=== PATIENT | male | born 1985 | race American Indian/Alaskan Native ===

== ENCOUNTER 2018-01-23 23:19 | Emergency (ER) | payer OTHER ==
[2018-01-23] MEDS ORDERED: PROVENTIL IH ONE (23:25)
--- NOTE | 2018-01-24 00:26 | XRay Report ---
FINAL REPORT EXAM: XR CHEST ROUTINE 2V HISTORY: sob TECHNIQUE: PA and lateral views of the chest were submitted. FINDINGS: Heart size and mediastinum appear normal. The lungs are clear. There is no evidence of congestion or effusion. The skeletal structures are well-maintained. IMPRESSION: Normal chest
[2018-01-24] MEDS ORDERED: PROVENTIL IH ONE (02:55)
[2018-01-24] MEDS ORDERED: ATROVENT IH ONE (02:55)
--- NOTE | 2018-01-24 03:06 | Emergency Department Report ---
HPI - General Chief Complaint: Adult Asthma Time Seen by Provider: 01/24/18 02:48 - HPI HPI: Mooney 25 The patient is a 32-year-old male presenting with a chief complaint of palpitations and shortness of breath. The patient states yesterday and today has had episodes where his heart races and he feels short of breath. Patient attributes it to panic attacks. Patient states he found himself using his inhaler but it has not helped. The patient states he's had a cough productive of thin clear sputum. The patient complains of soreness in his back from coughing. Patient does admit to pleurisy. Patient denies recent flights or long car trips. Location: [See above] Duration: Intermittent, yesterday and today Quality: Soreness Severity: Moderate Modifying factors: [see above] Context: [see above] Mode of transportation: Unknown ED Past Medical Hx - Past Medical History Hx Psychiatric Treatment: Yes (Panic Attacks) Hx Asthma: Yes - Surgical History Past Surgical History?: No - Family History Family history: no significant - Social History Smoking Status: Never Smoker Substance Use Type: None (denies illicit drug use) - Medications Home Medications: Home Medications Medication Instructions Recorded Confirmed Last Taken Type ALBUTEROL Inhaler [Proair] 2 puff IH QID PRN #1 inhalation 01/24/18 Unknown Rx Azithromycin [Zithromax Z-JORGE] 0 mg PO DAILY #6 tab 01/24/18 Unknown Rx Prednisone [predniSONE 10 mg 10 mg PO .TAPER #1 tab.ds.pk 01/24/18 Unknown Rx (6-Day Pack, 21 Tabs)] ED Review of Systems ROS: Stated complaint: MEENA; ASTHMA Other details as noted in HPI Constitutional: no symptoms reported Respiratory: cough, shortness of breath Cardiovascular: palpitations Musculoskeletal: back pain, myalgia Physical Exam - Physical Exam Vital Signs: Vital Signs 01/23/18 23:32 Temperature 99 F Pulse Rate 101 H Respiratory 26 H Rate Blood Pressure 138/74 O2 Sat by Pulse 94 Oximetry Physical Exam: GENERAL: The patient is well-developed well-nourished male lying on stretcher not appearing to be in acute distress. [] HEENT: Normocephalic. Atraumatic. Extraocular motions are intact. Patient has moist mucous membranes. NECK: Supple. Trachea midline CHEST/LUNGS: Occasional rhonchi. Occasional trace wheeze. There is no respiratory distress noted. HEART/CARDIOVASCULAR: Regular. There is no tachycardia. There is no gallop rub or murmur. ABDOMEN: Abdomen is soft, nontender. Patient has normal bowel sounds. There is no abdominal distention. SKIN: There is no rash. There is no diaphoresis. NEURO: The patient is awake, alert, and oriented. The patient is cooperative. The patient has normal speech MUSCULOSKELETAL: There is no evidence of acute injury. ED Course Vital Signs 01/23/18 23:32 Temperature 99 F Pulse Rate 101 H Respiratory 26 H Rate Blood Pressure 138/74 O2 Sat by Pulse 94 Oximetry ED Medical Decision Making - Lab Data Result diagrams: 01/24/18 03:11 01/24/18 03:11 Laboratory Tests 01/24/18 01/24/18 01/24/18 03:11 03:11 03:11 WBC 8.9 RBC 5.57 H Hgb 13.8 Hct 43.1 MCV 77 L MCH 25 L MCHC 32 RDW 15.0 Plt Count 224 Add Manual Diff Complete Total Counted 100 Seg Neutrophils % Water Treatment Operator Seg Neuts % (Manual) 89.0 H Band Neutrophils % 1.0 Lymphocytes % (Manual) 8.0 L Reactive Lymphs % (Man) 0 Monocytes % (Manual) 2.0 Eosinophils % (Manual) 0 Basophils % (Manual) 0 Metamyelocytes % 0 Myelocytes % 0 Promyelocytes % 0 Blast Cells % 0 Nucleated RBC % Not Reportable Seg Neutrophils # Man 7.9 H Band Neutrophils # 0.1 Lymphocytes # (Manual) 0.7 L Abs React Lymphs (Man) 0.0 Monocytes # (Manual) 0.2 Eosinophils # (Manual) 0.0 Basophils # (Manual) 0.0 Metamyelocytes # 0.0 Myelocytes # 0.0 Promyelocytes # 0.0 Blast Cells # 0.0 WBC Morphology Not Reportable Hypersegmented Neuts Not Reportable Hyposegmented Neuts Not Reportable Hypogranular Neuts Not Reportable Smudge Cells Not Reportable Toxic Granulation Not Reportable Toxic Vacuolation Not Reportable Dohle Bodies Not Reportable Pelger-Huet Anomaly Not Reportable Doug Rods Not Reportable Platelet Estimate Appears normal Clumped Platelets Not Reportable Plt Clumps, EDTA Not Reportable Large Platelets Not Reportable Giant Platelets Not Reportable Platelet Satelliting Not Reportable Plt Morphology Comment Not Reportable RBC Morphology Not Reportable Dimorphic RBCs Not Reportable Polychromasia Not Reportable Hypochromasia Not Reportable Poikilocytosis Not Reportable Anisocytosis Few Microcytosis Not Reportable Macrocytosis Not Reportable Spherocytes Not Reportable Pappenheimer Bodies Not Reportable Sickle Cells Not Reportable Target Cells Not Reportable Tear Drop Cells Not Reportable Ovalocytes Not Reportable Helmet Cells Not Reportable Thompson-Whalan Bodies Not Reportable [place] Rings Not Reportable Maria C Cells Not Reportable Bite Cells Not Reportable Crenated Cell Not Reportable Elliptocytes Not Reportable Acanthocytes (Spur) Not Reportable Rouleaux Not Reportable Hemoglobin C Crystals Not Reportable Schistocytes Not Reportable Malaria parasites Not Reportable Morgan Bodies Not Reportable Hem Pathologist Commnt No D-Dimer < 135 Sodium 138 Potassium 4.5 Chloride 102.6 Carbon Dioxide 24 Anion Gap 16 BUN 19 Creatinine 1.0 Estimated GFR > 60 BUN/Creatinine Ratio 19 Glucose 162 H Calcium 9.2 Total Creatine Kinase 415 H CK-MB (CK-2) 2.2 CK-MB (CK-2) Rel Index 0.5 Troponin T < 0.010 NT-Pro-B Natriuret Pep 16.90 - EKG Data -: EKG Interpreted by Me EKG shows normal: sinus rhythm Rate: normal - EKG Data When compared to previous EKG there are: previous EKG unavailable Interpretation: nonspecific ST-T wave nahed (early repolarization) - Radiology Data Radiology results: image reviewed (chest x-ray) interpreted by me: Chest x-ray-no focal infiltrates, no pneumothorax - Differential Diagnosis anxiety, asthma, PE, dysrhythmia Critical care attestation.: If time is entered above; I have spent that time in minutes in the direct care of this critically ill patient, excluding procedure time. ED Disposition Clinical Impression: Bronchitis, Anxiety Disposition: DC-01 TO HOME OR SELFCARE Is pt being admited?: No Does the pt Need Aspirin: No Condition: Stable Instructions: Acute Bronchitis (ED) Additional Instructions: Return to the emergency department immediately should you develop worsening symptoms, fever, inability to tolerate food or liquid or any other concerns. Prescriptions: ALBUTEROL Inhaler [Proair] 2 puff IH QID PRN #1 inhalation PRN Reason: Shortness Of Breath Azithromycin [Zithromax Z-JORGE] 0 mg PO DAILY #6 tab Prednisone [predniSONE 10 mg (6-Day Pack, 21 Tabs)] 10 mg PO .TAPER #1 tab.ds.pk Referrals: SONDRA BROWN MD [Staff Physician] - 3-5 Days Time of Disposition: 04:15
[2018-01-24 03:28] LABS: Hematocrit 43.1 % (35.5-45.6); Hemoglobin 13.8 gm/dl (11.8-15.2); Mean Corpuscular HGB Conc 32 % (32-34); Mean Corpuscular Volume 77 fl (84-94); Platelet Count 224 K/mm3 (140-440); Red Blood Count 5.57 M/mm3 (3.65-5.03)
[2018-01-24 03:32] LABS: Mean Corpuscular Hemoglobin 25 pg (28-32)
[2018-01-24 03:46] LABS: Creatine Kinase MB 2.2 ng/mL (0.0-4.0)
[2018-01-24 03:47] LABS: BUN/Creatinine Ratio 19; Blood Urea Nitrogen 19 mg/dL (9-20); Calcium 9.2 mg/dL (8.4-10.2); Hemolysis Index 1
[2018-01-24 04:06] LABS: Total Cells Counted 100
[2018-01-24 04:07] LABS: Anisocytosis Few; Band Neutrophils # (Manual) 0.1 K/mm3; Basophils % (Manual) 0 % (0.0-1.8); Eosinophils % (Manual) 0 % (0.0-4.3)
[2018-01-24 04:39] VITALS: BP 147/89
== END 2018-01-24 04:35 | disposition home or self-care (01) ==
LOC: ED 23:19
DX: J40 Bronchitis, not specified as acute or chronic (principal); F41.9 Anxiety disorder, unspecified
CPT/HCPCS: 36415; 71046; 80048; 82550; 82553; 83880; 84484; 85007; 85025; 85379; 93005; 93010; 96374; 99284; J2930

== ENCOUNTER 2019-02-21 11:08 | Emergency (ER) | payer OTHER ==
[2019-02-21] MEDS ORDERED: PROVENTIL IH ONE (11:37)
[2019-02-21] MEDS ORDERED: ATROVENT IH ONE (11:37)
[2019-02-21] MEDS ORDERED: DECADRON IM ONE (11:37)
--- NOTE | 2019-02-21 11:37 | Emergency Department Report ---
Blank Doc - Documentation Documentation: This is a 33-year-old male that presents with URI with SOB. HX of asthma. De nies any chest pain. Exam: Diffuse wheezing This initial assessment/diagnostic orders/clinical plan/treatment(s) is/are subject to change based on patient's health status, clinical progression and re- assessment by fellow clinical providers in the ED. Further treatment and workup at subsequent clinical providers discretion. Patient/guardians urged not to elope from the ED as their condition may be serious if not clinically assessed and managed. Initial orders include: 1- Patient sent to [facility] for further evaluation and treatment 2- breathing treatment/steroids 3- CXR
[2019-02-21 11:41] VITALS: BP 148/97
--- NOTE | 2019-02-21 12:02 | XRay Report ---
ROUTINE CHEST, TWO VIEWS: HISTORY: Wheezing. The trachea, heart, mediastinal contour, lung huertas and bony thorax are unremarkable. No significant change since 01/24/18. IMPRESSION: Unremarkable chest x-ray.
--- NOTE | 2019-02-21 12:39 | Emergency Department Report ---
ED Asthma HPI - General Chief Complaint: Dyspnea/Respdistress Stated Complaint: MEENA Time Seen by Provider: 02/21/19 11:35 Source: patient Mode of arrival: Ambulatory Limitations: No Limitations - History of Present Illness Initial Comments: Shiraz is a 33 yo male with hx of asthma who presents wtih cough, sputum, shortness of breath for one day. MD Complaint: "asthma attack", shortness of breath, wheezing -: Gradual, days(s) (1) Asthma History: history of prior ED visit Severity: moderate Context: recent URI Associated Symptoms: productive cough Treatments Prior to Arrival: inhaled bronchodilator - Related Data Previous Rx's Medication Instructions Recorded Last Taken Type ALBUTEROL Inhaler (OR & NICU) 2 puff IH QID PRN #1 inhalation 01/24/18 Unknown Rx [Proair] Azithromycin [Zithromax Z-JORGE] 0 mg PO DAILY #6 tab 01/24/18 Unknown Rx Prednisone [predniSONE 10 mg 10 mg PO .TAPER #1 tab.ds.pk 01/24/18 Unknown Rx (6-Day Pack, 21 Tabs)] ALBUTEROL Inhaler (OR & NICU) 2 puff IH QID PRN #1 device 02/21/19 Unknown Rx [ProAir HFA Inhaler] Prednisone [predniSONE 10 mg 10 mg PO .TAPER #1 tab.ds.pk 02/21/19 Unknown Rx (6-Day Pack, 21 Tabs)] Allergies Allergy/AdvReac Type Severity Reaction Status Date / Time No Known Allergies Allergy Verified 02/21/19 11:09 ED Review of Systems ROS: Stated complaint: MEENA Other details as noted in HPI Comment: All other systems reviewed and negative Constitutional: denies: fever Eyes: denies: eye discharge Respiratory: cough, shortness of breath, wheezing Cardiovascular: denies: chest pain ED Past Medical Hx - Past Medical History Previous Medical History?: Yes Hx Psychiatric Treatment: Yes (Panic Attacks) Hx Asthma: Yes - Social History Smoking Status: Never Smoker Substance Use Type: None - Medications Home Medications: Home Medications Medication Instructions Recorded Confirmed Last Taken Type ALBUTEROL Inhaler (OR & NICU) 2 puff IH QID PRN #1 inhalation 01/24/18 Unknown Rx [Proair] Azithromycin [Zithromax Z-JORGE] 0 mg PO DAILY #6 tab 01/24/18 Unknown Rx Prednisone [predniSONE 10 mg 10 mg PO .TAPER #1 tab.ds.pk 01/24/18 Unknown Rx (6-Day Pack, 21 Tabs)] ALBUTEROL Inhaler (OR & NICU) 2 puff IH QID PRN #1 device 02/21/19 Unknown Rx [ProAir HFA Inhaler] Prednisone [predniSONE 10 mg 10 mg PO .TAPER #1 tab.ds.pk 02/21/19 Unknown Rx (6-Day Pack, 21 Tabs)] ED Physical Exam - General Limitations: No Limitations General appearance: alert, in no apparent distress - Head Head exam: Present: atraumatic, normocephalic - Eye Eye exam: Present: normal appearance - ENT ENT exam: Present: mucous membranes moist - Neck Neck exam: Present: normal inspection, full ROM - Respiratory Respiratory exam: Present: normal lung sounds bilaterally. Absent: respiratory distress, wheezes, rales, rhonchi, accessory muscle use, decreased breath sounds, prolonged expiratory - Cardiovascular Cardiovascular Exam: Present: regular rate, normal rhythm, normal heart sounds. Absent: systolic murmur, diastolic murmur, rubs, gallop - GI/Abdominal GI/Abdominal exam: Present: soft, normal bowel sounds. Absent: distended, ten derness, guarding, rebound - Rectal Rectal exam: Present: deferred - Extremities Exam Extremities exam: Present: normal inspection - Back Exam Back exam: Present: normal inspection - Neurological Exam Neurological exam: Present: alert, oriented X3 - Psychiatric Psychiatric exam: Present: normal affect, normal mood - Skin Skin exam: Present: warm, dry, intact, normal color. Absent: rash ED Course Vital Signs 02/21/19 11:39 Temperature 97.2 F L Pulse Rate 114 H Respiratory 26 H Rate Blood Pressure 148/97 O2 Sat by Pulse 100 Oximetry ED Medical Decision Making - Radiology Data Radiology results: report reviewed Chest x-ray two-view PA and lateral no acute process according to radiology report - Medical Decision Making Shiraz is 33 yo male who presents with mild asthma exacerbation: Azithromycin prescribed on previous ED visit. rx: prednisone taper, loratadine, albuterol MDI, Critical care attestation.: If time is entered above; I have spent that time in minutes in the direct care of this critically ill patient, excluding procedure time. ED Disposition Clinical Impression: Asthma exacerbation Disposition: - TO HOME OR SELFCARE Is pt being admited?: No Does the pt Need Aspirin: No Condition: Stable Instructions: Asthma (ED) Prescriptions: Prednisone [predniSONE 10 mg (6-Day Pack, 21 Tabs)] 10 mg PO .TAPER #1 tab.ds.pk ALBUTEROL Inhaler (OR & NICU) [ProAir HFA Inhaler] 2 puff IH QID PRN #1 device PRN Reason: Shortness Of Breath Referrals: GASTON SCHUMACHER MD [Primary Care Provider] - 3-5 Days Forms: Work/School Release Form(ED)
[2019-02-21] MEDS ORDERED: XANAX PO ONE (13:01)
== END 2019-02-21 13:24 | disposition home or self-care (01) ==
LOC: ED 11:08
DX: J45.901 Unspecified asthma with (acute) exacerbation (principal); F41.0 Panic disorder [episodic paroxysmal anxiety]
CPT/HCPCS: 71046; 94640; 96372; 99283; J1100

== ENCOUNTER 2019-06-16 05:45 | Emergency (ER) | payer OTHER ==
[2019-06-16 06:00] VITALS: BP 120/78
[2019-06-16 06:11] LABS: Basophils % (Auto) 0.5 % (0.0-1.8); Eosinophils % (Auto) 0.4 % (0.0-4.3); Hemoglobin 13.6 gm/dl (11.8-15.2); Lymphocytes # (Auto) 1.7 K/mm3 (1.2-5.4); Lymphocytes % (Auto) 20.4 % (13.4-35.0); Mean Corpuscular HGB Conc 32 % (32-34); Mean Corpuscular Volume 79 fl (84-94); Monocytes # (Auto) 1.1 K/mm3 (0.0-0.8); Monocytes % (Auto) 12.9 % (0.0-7.3); Platelet Count 249 K/mm3 (140-440); Red Blood Count 5.33 M/mm3 (3.65-5.03); Red Cell Distribution Width 14.7 % (13.2-15.2)
[2019-06-16 06:27] LABS: Alanine Aminotransferase 19 units/L (7-56); Albumin 4.1 g/dL (3.9-5); BUN/Creatinine Ratio 8; Blood Urea Nitrogen 10 mg/dL (9-20); Calcium 9.2 mg/dL (8.4-10.2); Hemolysis Index 9
[2019-06-16] MEDS ORDERED: ZOFRAN IV ONE (06:32)
[2019-06-16] MEDS ORDERED: PEPCID IV ONE (06:32)
[2019-06-16] MEDS ORDERED: LOMOTIL PO ONE (06:32)
[2019-06-16] MEDS ORDERED: NACL 0.9% 1000 ML 1,000 ML IV ONE (06:33)
[2019-06-16 06:56] LABS: Bilirubin,Urine SM (Negative); Blood,Urine SM (Negative); Color,Urine Amber (Yellow); Mucus,Urine 3+ /HPF; Urobilinogen,Urine < 2.0 mg/dL (<2.0)
[2019-06-16 07:19] LABS: Ictotest,Urine Negative (Negative)
--- NOTE | 2019-06-16 08:17 | Emergency Department Report ---
ED N/V/D HPI - General Chief complaint: Abdominal Pain Stated complaint: NVD, TIRED, ABD PAIN, SWEATS, SHIVERS Time Seen by Provider: 06/16/19 07:42 Source: patient Mode of arrival: Ambulatory Limitations: No Limitations - History of Present Illness Initial comments: This is a 33-year-old male who presents to ED complaining of nausea vomiting diarrhea started Tuesday afternoon he left [facility]. Patient states she was treated for anxiety in the hospital on Tuesday. Patient was seen as an outpatient in the ED and discharged home with hydroxyzine, patient states when he got home he started to have some vomiting and diarrhea. Patient does states that he has a history of gastritis and usually takes Protonix. He denies blood in the stool, dysuria, fever, chills, chest pain or shortness of breath. MD complaint: nausea, vomiting, diarrhea - Related Data Previous Rx's Medication Instructions Recorded Last Taken Type ALBUTEROL Inhaler (OR & NICU) 2 puff IH QID PRN #1 inhalation 01/24/18 Unknown Rx [Proair] Azithromycin [Zithromax Z-JORGE] 0 mg PO DAILY #6 tab 01/24/18 Unknown Rx Prednisone [predniSONE 10 mg 10 mg PO .TAPER #1 tab.ds.pk 01/24/18 Unknown Rx (6-Day Pack, 21 Tabs)] ALBUTEROL Inhaler (OR & NICU) 2 puff IH QID PRN #1 device 02/21/19 Unknown Rx [ProAir HFA Inhaler] Benzonatate [Tessalon Perle] 100 mg PO TID PRN #20 capsule 02/21/19 Unknown Rx Loratadine 10 mg PO DAILY #30 tablet 02/21/19 Unknown Rx Prednisone [predniSONE 10 mg 10 mg PO .TAPER #1 tab.ds.pk 02/21/19 Unknown Rx (6-Day Pack, 21 Tabs)] Dicyclomine [Bentyl] 10 mg PO TID #20 capsule 06/16/19 Unknown Rx Loperamide [Imodium] 2 mg PO Q6HR #10 capsule 06/16/19 Unknown Rx Ondansetron [Zofran ODT TAB] 8 mg PO Q12HR #20 tab.rapdis 06/16/19 Unknown Rx Allergies Allergy/AdvReac Type Severity Reaction Status Date / Time No Known Allergies Allergy Verified 02/21/19 11:09 ED Review of Systems ROS: Stated complaint: NVD, TIRED, ABD PAIN, SWEATS, SHIVERS Other details as noted in HPI Comment: All other systems reviewed and negative ED Past Medical Hx - Past Medical History Previous Medical History?: Yes Hx Psychiatric Treatment: Yes (Panic Attacks) Hx Asthma: Yes - Surgical History Past Surgical History?: No - Social History Smoking Status: Never Smoker Substance Use Type: None - Medications Home Medications: Home Medications Medication Instructions Recorded Confirmed Last Taken Type ALBUTEROL Inhaler (OR & NICU) 2 puff IH QID PRN #1 inhalation 01/24/18 Unknown Rx [Proair] Azithromycin [Zithromax Z-JORGE] 0 mg PO DAILY #6 tab 01/24/18 Unknown Rx Prednisone [predniSONE 10 mg 10 mg PO .TAPER #1 tab.ds.pk 01/24/18 Unknown Rx (6-Day Pack, 21 Tabs)] ALBUTEROL Inhaler (OR & NICU) 2 puff IH QID PRN #1 device 02/21/19 Unknown Rx [ProAir HFA Inhaler] Benzonatate [Tessalon Perle] 100 mg PO TID PRN #20 capsule 02/21/19 Unknown Rx Loratadine 10 mg PO DAILY #30 tablet 02/21/19 Unknown Rx Prednisone [predniSONE 10 mg 10 mg PO .TAPER #1 tab.ds.pk 02/21/19 Unknown Rx (6-Day Pack, 21 Tabs)] Dicyclomine [Bentyl] 10 mg PO TID #20 capsule 06/16/19 Unknown Rx Loperamide [Imodium] 2 mg PO Q6HR #10 capsule 06/16/19 Unknown Rx Ondansetron [Zofran ODT TAB] 8 mg PO Q12HR #20 tab.rapdis 06/16/19 Unknown Rx ED Physical Exam - General Limitations: No Limitations General appearance: alert, in no apparent distress - Head Head exam: Present: atraumatic, normocephalic - Eye Eye exam: Present: normal appearance - ENT ENT exam: Present: mucous membranes moist - Neck Neck exam: Present: normal inspection - Respiratory Respiratory exam: Present: normal lung sounds bilaterally. Absent: respiratory distress - Cardiovascular Cardiovascular Exam: Present: regular rate, normal rhythm. Absent: systolic murmur, diastolic murmur, rubs, gallop - GI/Abdominal GI/Abdominal exam: Present: soft, normal bowel sounds. Absent: distended, tenderness, guarding, rebound, mass, bruit - Rectal Rectal exam: Present: deferred - Extremities Exam Extremities exam: Present: normal inspection, full ROM - Back Exam Back exam: Present: normal inspection. Absent: CVA tenderness (R), CVA tenderness (L) - Neurological Exam Neurological exam: Present: alert, oriented X3, normal gait - Psychiatric Psychiatric exam: Present: normal affect, normal mood - Skin Skin exam: Present: warm, dry, intact, normal color. Absent: rash ED Course Vital Signs 06/16/19 05:59 Temperature 908.3 F H Pulse Rate 101 H Respiratory 18 Rate Blood Pressure 120/78 [Right] O2 Sat by Pulse 100 Oximetry ED Medical Decision Making - Lab Data Result diagrams: 06/16/19 05:57 06/16/19 05:57 - Medical Decision Making 33-year-old male presents with acute viral gastroenteritis CBC within normal limits CMP within normal limits urinalysis within normal limits. Patient received 1 L of fluids in the ED. Palpation and is not having any active vomiting or diarrhea in the ED. Discussed with patient to follow up with his media analyst Dr. Walsh Vital signs are normal patient is in no acute distress. Critical care attestation.: If time is entered above; I have spent that time in minutes in the direct care of this critically ill patient, excluding procedure time. ED Disposition Clinical Impression: Gastroenteritis Disposition: DC-01 TO HOME OR SELFCARE Is pt being admited?: No Does the pt Need Aspirin: No Condition: Stable Instructions: Diet for Ulcers and Gastritis (ED), Gastroenteritis (ED), Acute Nausea and Vomiting (ED) Additional Instructions: Make sure to follow up with s your media analyst in 2-3 days as discussed. Take all your medications as you've been prescribed. Make sure that you increase her hydration daily If you have any worsening symptoms or develop new symptoms please return to ED immediately. Prescriptions: Dicyclomine [Bentyl] 10 mg PO TID #20 capsule Loperamide [Imodium] 2 mg PO Q6HR #10 capsule Ondansetron [Zofran ODT TAB] 8 mg PO Q12HR #20 tab.rapdis Referrals: GASTON SCHUMACHER MD [Primary Care Provider] - 3-5 Days Forms: Work/School Release Form(ED) Time of Disposition: 08:23
== END 2019-06-16 09:30 | disposition home or self-care (01) ==
LOC: ED 05:45
DX: A08.4 Viral intestinal infection, unspecified (principal); F41.0 Panic disorder [episodic paroxysmal anxiety]; J45.909 Unspecified asthma, uncomplicated; F41.9 Anxiety disorder, unspecified; Z79.899 Other long term (current) drug therapy
CPT/HCPCS: 36415; 80053; 81001; 83690; 85025; 96361; 96374; 96375; 99283; J2405; J7030